=== PATIENT | female | born 1955 | race American Indian/Alaskan Native ===

== ENCOUNTER → 2016-08-13 | Outpatient (CLI) | payer BC, OTHER ==
--- NOTE | 2016-08-13 16:40 | CT ---
EXAMINATION: CT abdomen without contrast HISTORY: Ventral hernia COMPARISON: None TECHNIQUE: Axial CT images obtained through the abdomen without contrast. Coronal and sagittal recon structions obtained. FINDINGS: The lung bases are clear, no pleural effusion. There is mild to moderate fatty infiltration of the liver. The spleen, adrenal glands, and pancreas appear otherwise unremarkable for a noncontrast examination. Cholecystectomy with mild prominence of the common bile duct. No bulky retroperitoneal lymphadenopathy. No abnormal calcifications are noted within the kidneys, no evidence of obstructive uropathy. The visualized large and small bowel are normal in caliber without evidence of obstruction. There is a tiny fat-containing midline ventral hernia noted 8 cm superior to the umbilicus. No suspicious osseous abnormalities. IMPRESSION: 1. Tiny fat-containing supraumbilical midline hernia. 2. Cholecystectomy. 3. Mild to moderate fatty infiltration of the liver.
== END ==
LOC: MW.DI 12:48
PROVIDERS: ATTEND Nurse Practitioner Family
DX: K43.9 Ventral hernia without obstruction or gangrene (principal); K42.9 Umbilical hernia without obstruction or gangrene; Z90.49 Acquired absence of other specified parts of digestive tract; K76.0 Fatty (change of) liver, not elsewhere classified
CPT/HCPCS: 74150; 74150-26

== ENCOUNTER 2016-09-05 10:09 | Day surgery (SDC) | payer BC, OTHER ==
[~2016-09-05 10:09] MED LIST: Lactated Ringers 1,000 ML IV SCH; Lidocaine 2% 5 ML SDV ONE; Midazolam 1 MG/ML 2 ML SDV ONE; Propofol 200 MG/20 ML SDV ONE; Sodium Chloride 0.9% 10 ML Syringe FLUSH PRN; Sodium Chloride 0.9% 2.5 ML Syringe FLUSH PRN; fentaNYL 100 MCG/2 ML SDV ONE
--- NOTE | 2016-09-05 10:58 | PCM.PREANE ---
Preanesthetic Assessment - Anesthesia/Transfusion/Family Hx Anesthesia History: Prior Anesthesia Without Reaction Family History of Anesthesia Reaction: No Transfusion History: No Prior Transfusion(s) Intubation History: Unknown - Review of Systems General: No Symptoms Pulmonary: No Symptoms Cardiovascular: No Symptoms Neurological: No Symptoms Other: Reports: None - Physical Assessment Height: 1.6 m Weight: 77.564 kg ASA Class: 2 Mental Status: Alert & Oriented x3 Airway Class: Mallampati = 2 Dentition: Reports: Bridge (fixed bridge - upper) Thyro-Mental Finger Breadths: 3 Mouth Opening Finger Breadths: 3 ROM/Head Extension: Full Lungs: Clear to auscultation, Normal respiratory effort Cardiovascular: Regular Rate - Allergies Allergies/Adverse Reactions: Allergies Allergy/AdvReac Type Severity Reaction Status Date / Time ibuprofen Allergy Other Verified 09/03/16 09:20 [From Advil Cold and Sinus] pseudoephedrine Allergy Other Verified 09/03/16 09:20 [From Advil Cold and Sinus] - Blood Blood Available: No - Anesthesia Plan Pre-Op Medication Ordered: None - Acknowledgements Anesthesia Type Planned: MAC Pt an Appropriate Candidate for the Planned Anesthesia: Yes Alternatives and Risks of Anesthesia Discussed w Pt/Guardian: Yes Pt/Guardian Understands and Agrees with Anesthesia Plan: Yes PreAnesthesia Questionnaire Other HEENT History: wears glasses, has upper and lower partial dentures Cardiovascular History: Reports: None Respiratory History: Reports: None Gastrointestinal History: Reports: Other (see below) (incisional hernia) Genitourinary History: Reports: None [employer] OPERATOR History: Reports: Musculoskeletal History: Reports: None Neurological History: Reports: None Psychiatric History: Reports: None Endocrine/Metabolic History: Reports: Obesity/BMI 30+ Hematologic History: Reports: None Immunologic History: Reports: None Oncologic (Cancer) History: Reports: None Dermatologic History: Reports: None - Past Surgical History Head Surgeries/Procedures: Reports: None HEENT Surgical History: Reports: None Cardiovascular Surgical History: Reports: None Respiratory Surgical History: Reports: None GI Surgical History: Reports: Appendectomy, Cholecystectomy (open) Female Surgical History: Reports: Breast biopsy, section (x4) Other Female Surgeries/Procedures: x4 Endocrine Surgical History: Reports: None Neurological Surgical History: Reports: None Musculoskeletal Surgical History: Reports: None Oncologic Surgical History: Reports: None Dermatological Surgical History: Reports: None - SUBSTANCE USE Smoking Status *Q: Current Every Day Smoker (05/02 ppd) Tobacco Use Within Last Twelve Months: Cigarettes Recreational Drug Use History: No - HOME MEDS Home Medications: Home Meds . [No Known Home Meds] 09/03/16 [History] - CURRENT (IN HOUSE) MEDS Current Meds: Current Medications Lactated Ringer's (Ringers, Lactated) 1,000 mls @ 125 mls/hr IV ASDIRECTED CARLIN Sodium Chloride (Saline Flush) 10 ml FLUSH ASDIRECTED PRN PRN Reason: Keep Vein Open Sodium Chloride (Saline Flush) 2.5 ml FLUSH ASDIRECTED PRN PRN Reason: Keep Vein Open Discontinued Medications Fentanyl (Sublimaze) Confirm Administered Dose 100 mcg .ROUTE .STK-MED ONE Stop: 09/05/16 07:19 Lidocaine (Xylocaine-Mpf 2%) Confirm Administered Dose 5 ml .ROUTE .STK-MED ONE Stop: 09/05/16 07:19 Midazolam HCl (Versed 1 Mg/Ml) Confirm Administered Dose 2 mg .ROUTE .STK-MED ONE Stop: 09/05/16 07:19 Propofol (Diprivan 20 Ml) Confirm Administered Dose 400 mg .ROUTE .STK-MED ONE Stop: 09/05/16 07:19
[2016-09-05] MEDS ORDERED: Glycopyrrolate 0.2 MG/ML SDV ONE (11:11)
[2016-09-05] MEDS ORDERED: Propofol 200 MG/20 ML SDV ONE ×2 (11:29→11:44)
--- NOTE | 2016-09-05 12:02 | PCM.OPNOTE ---
- General Post-Op/Procedure Note Date of Surgery/Procedure: 09/05/16 Operative Procedure(s): Screening colonoscopy Findings: 3 sigmoid colon polyps Pre Op Diagnosis: Screening colonoscopy Post-Op Diagnosis: 3 sigmoid polyps Anesthesia Technique: MAC Primary Surgeon: Flor Bonilla Condition: Good
[2016-09-05] MEDS ORDERED: Midazolam 1 MG/ML 2 ML SDV ONE (12:05)
--- NOTE | 2016-09-05 12:21 | PCM.POSTAN ---
POST ANESTHESIA ASSESSMENT - MENTAL STATUS Mental Status: alert, oriented - RESPIRATORY Respiratory Status: respiratory rate WNL, airway patent, O2 saturation stable - CARDIOVASCULAR CV Status: pulse rate WNL, blood pressure stable - GASTROINTESTINAL GI Status: no symptoms - POST OP HYDRATION Hydration Status: adequate & stable - OBSERVATIONS Free Text/Narrative:: no anesthesia problems
[2016-09-05 14:31] VITALS: BP 159/91
--- NOTE | 2016-09-05 20:47 | OR ---
SURGEON: REN BAUMANN MD DATE OF PROCEDURE: 09/05/2016 PREOPERATIVE DIAGNOSIS: Screening colonoscopy. POSTOPERATIVE DIAGNOSIS: Sigmoid colon polyps. PROCEDURE PERFORMED: Colonoscopy. INSTRUMENT USED: Olympus colonoscope. ANESTHESIA: MAC. EXTENT OF EXAM: To the cecum. PREPARATION: Good. LIMITATIONS: None. INDICATIONS: The patient is a 61-year-old female, who presents for repair of an incisional hernia. On further questioning, the patient has never had a screening colonoscopy performed. The decision was made to proceed with a screening colonoscopy first before moving forward with the incisional hernia repair. The patient and I discussed the procedure as well as expected perioperative course. We discussed the risks, including bleeding, infection, or damage to surrounding structures, including perforation. The patient verbalized understanding and wished to proceed. PROCEDURE IN DETAIL: The patient was brought into the endoscopy suite and placed in the left lateral decubitus position. A time-out was completed verifying the patient's name, age, date of , allergies, and procedure to be performed. Monitored anesthesia care was induced and continuous oxygen was provided via nasal cannula throughout the procedure. After adequate sedation was achieved, a digital rectal exam was performed. The examination was within normal limits. A well lubricated colonoscope was then inserted into the rectum and advanced under direct visualization to the level of the cecum. The cecum was identified by both visual and anatomic landmarks. A photograph was taken of the cecal cap as well as with the scope retroflexed within the cecum. The scope was then straightened out and fully withdrawn while examining the color, texture, anatomy, and integrity of mucosa from the cecum to the anal canal. In the distal sigmoid colon, 3 small 1 to 2 mm sessile polyps were noted. These were all removed via cold biopsy forceps and sent to pathology labeled as sigmoid colon polyp #1, #2, #3. The scope was then brought into the rectum and retroflexed to allow visualization of the anal canal opening. This appeared normal and a photograph was taken. The scope was then straightened out and removed from the patient. The cecum to anus time was 22 minutes. The patient was transferred to the recovery room in stable condition. ENDOSCOPIC DIAGNOSIS: Sigmoid colon polyps x3. RECOMMENDATION: Follow up in clinic in 2 weeks. JASPAL / SHERWIN /[id number]
== END 2016-09-05 12:58 | disposition home or self-care (01) ==
LOC: MW.SDS 10:09
PROVIDERS: ATTEND Surgery
DX: Z12.11 Encounter for screening for malignant neoplasm of colon (principal); D12.5 Benign neoplasm of sigmoid colon; F17.200 Nicotine dependence, unspecified, uncomplicated; Z90.49 Acquired absence of other specified parts of digestive tract; Z98.890 Other specified postprocedural states; Z83.79 Family history of other diseases of the digestive system
CPT/HCPCS: 45380; J2250; J3010; J7120; 88305; J2704

== ENCOUNTER 2016-09-19 07:11 | Day surgery (SDC) | payer BC, OTHER ==
[~2016-09-19 07:11] MED LIST changes: -Lidocaine 2% 5 ML SDV ONE; -Midazolam 1 MG/ML 2 ML SDV ONE; -Propofol 200 MG/20 ML SDV ONE; +ceFAZolin 2 GM in Premix Bag 1 BAG IV ONE; -fentaNYL 100 MCG/2 ML SDV ONE
[2016-09-19] MEDS ORDERED: fentaNYL 250 MCG/5 ML SDV ONE (07:32)
[2016-09-19] MEDS ORDERED: Rocuronium 10 MG/ML 10 ML Syringe ONE (07:32)
[2016-09-19] MEDS ORDERED: Midazolam 1 MG/ML 2 ML SDV ONE (07:32)
[2016-09-19] MEDS ORDERED: Ondansetron 4 MG/2 ML SDV ONE (07:32)
[2016-09-19] MEDS ORDERED: Lidocaine 2% 5 ML SDV ONE (07:32)
[2016-09-19] MEDS ORDERED: Propofol 200 MG/20 ML SDV ONE (07:32)
--- NOTE | 2016-09-19 07:43 | PCM.PREANE ---
Preanesthetic Assessment - Anesthesia/Transfusion/Family Hx Anesthesia History: Prior Anesthesia Without Reaction Family History of Anesthesia Reaction: No Transfusion History: No Prior Transfusion(s) Intubation History: Unknown - Review of Systems General: No Symptoms Pulmonary: No Symptoms Cardiovascular: No Symptoms Gastrointestinal: No symptoms Neurological: No Symptoms Other: Reports: None - Physical Assessment O2 Sat by Pulse Oximetry: 96 Respiratory Rate: 16 Vital Signs: Last Vital Signs Temp 36.8 C 09/19/16 07:33 Pulse 67 09/19/16 07:33 Resp 16 09/19/16 07:33 BP 120/59 L 09/19/16 07:33 Pulse Ox 96 09/19/16 07:33 Height: 1.6 m Weight: 77.564 kg ASA Class: 2 Mental Status: Alert & Oriented x3 Airway Class: Mallampati = 2 Dentition: Reports: Normal Dentition Thyro-Mental Finger Breadths: 3 Mouth Opening Finger Breadths: 3 ROM/Head Extension: Full Lungs: Clear to auscultation, Normal respiratory effort Cardiovascular: Regular Rate, Regular Rhythm - Allergies Allergies/Adverse Reactions: Allergies Allergy/AdvReac Type Severity Reaction Status Date / Time ibuprofen Allergy Other Verified 09/03/16 09:20 [From Advil Cold and Sinus] pseudoephedrine Allergy Other Verified 09/03/16 09:20 [From Advil Cold and Sinus] - Blood Blood Available: No - Anesthesia Plan Pre-Op Medication Ordered: None - Acknowledgements Anesthesia Type Planned: General Anesthesia Pt an Appropriate Candidate for the Planned Anesthesia: Yes Alternatives and Risks of Anesthesia Discussed w Pt/Guardian: Yes Pt/Guardian Understands and Agrees with Anesthesia Plan: Yes PreAnesthesia Questionnaire HEENT History: Reports: None Other HEENT History: wears glasses, has upper and lower partial dentures Cardiovascular History: Reports: None Respiratory History: Reports: None Gastrointestinal History: Reports: Other (See Below) Genitourinary History: Reports: None 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: Musculoskeletal History: Reports: None Neurological History: Reports: None Psychiatric History: Reports: None Endocrine/Metabolic History: Reports: Obesity/BMI 30+ Hematologic History: Reports: None Immunologic History: Reports: None Oncologic (Cancer) History: Reports: None Dermatologic History: Reports: None - Past Surgical History GI Surgical History: Reports: Appendectomy, Cholecystectomy Female Surgical History: Reports: Breast Biopsy, Section (x4) - SUBSTANCE USE Smoking Status *Q: Current Every Day Smoker (1/2 ppd) Tobacco Use Within Last Twelve Months: Cigarettes Recreational Drug Use History: No - HOME MEDS Home Medications: Home Meds . [No Known Home Meds] 09/03/16 [History] - CURRENT (IN HOUSE) MEDS Current Meds: Current Medications Lactated Ringer's (Ringers, Lactated) 1,000 mls @ 125 mls/hr IV ASDIRECTED CARLIN Last Admin: 09/19/16 07:35 Dose: 125 mls/hr Sodium Chloride (Saline Flush) 10 ml FLUSH ASDIRECTED PRN PRN Reason: Keep Vein Open Sodium Chloride (Saline Flush) 2.5 ml FLUSH ASDIRECTED PRN PRN Reason: Keep Vein Open Discontinued Medications Fentanyl (Sublimaze) Confirm Administered Dose 250 mcg .ROUTE .STK-MED ONE Stop: 09/19/16 07:33 Cefazolin Sodium/Dextrose 2 gm (/ Premix) 50 mls @ 100 mls/hr IV ONETIME ONE Stop: 09/18/16 12:43 Lidocaine (Xylocaine-Mpf 2%) Confirm Administered Dose 5 ml .ROUTE .STK-MED ONE Stop: 09/19/16 07:33 Midazolam HCl (Versed 1 Mg/Ml) Confirm Administered Dose 2 mg .ROUTE .STK-MED ONE Stop: 09/19/16 07:33 Ondansetron HCl (Zofran) Confirm Administered Dose 4 mg .ROUTE .STK-MED ONE Stop: 09/19/16 07:33 Propofol (Diprivan 20 Ml) Confirm Administered Dose 200 mg .ROUTE .STK-MED ONE Stop: 09/19/16 07:33 Rocuronium Crosby (Zemuron) Confirm Administered Dose 100 mg .ROUTE .STK-MED ONE Stop: 09/19/16 07:33
[2016-09-19] MEDS ORDERED: Bupivacaine 0.5% 10 ML SDV ONE (08:42)
[2016-09-19] MEDS ORDERED: ceFAZolin 1 GM Vial ONE (08:43)
[2016-09-19] MEDS ORDERED: Neostigmine Methylsulfate 1 MG/ML 5 ML Syringe ONE (09:36)
[2016-09-19] MEDS ORDERED: Ketorolac 30 MG/ML SDV ONE (09:36)
[2016-09-19] MEDS ORDERED: fentaNYL 100 MCG/2 ML SDV IVPUSH PRN (09:39)
--- NOTE | 2016-09-19 10:18 | PCM.OPNOTE ---
- General Post-Op/Procedure Note Date of Surgery/Procedure: 09/19/16 Operative Procedure(s): Incisional hernia repair Findings: 1.5 cm ventral defect 8 cm above the umbilicus. Incarcerated omentum. Pre Op Diagnosis: Incisional hernia repair Post-Op Diagnosis: same Anesthesia Technique: General ET tube Primary Surgeon: Flor Bonilla Pathology: Hernia sac Fluid Replacement, Intraop: 1,100 EBL in mLs: 5 Condition: Good
--- NOTE | 2016-09-19 10:49 | PCM.POSTAN ---
POST ANESTHESIA ASSESSMENT - MENTAL STATUS Mental Status: alert, oriented - RESPIRATORY Respiratory Status: respiratory rate WNL, airway patent, O2 saturation stable - CARDIOVASCULAR CV Status: pulse rate WNL, blood pressure stable - GASTROINTESTINAL GI Status: no symptoms - PAIN Pain Score: 5 - POST OP HYDRATION Hydration Status: adequate & stable - OBSERVATIONS Free Text/Narrative:: no anesthesia problems
[2016-09-19] MEDS ORDERED: Acetaminophen/oxyCODONE 325-10 MG Tab PO PRN (11:20)
[2016-09-19 12:23] VITALS: BP 131/64
--- NOTE | 2016-09-19 13:46 | OR ---
SURGEON: REN BAUMANN MD DATE OF PROCEDURE: 09/19/2016 PREOPERATIVE DIAGNOSIS: Incisional hernia. POSTOPERATIVE DIAGNOSIS: Incisional hernia. PROCEDURE PERFORMED: Incisional hernia repair. ANESTHESIA: General endotracheal anesthesia. FLUIDS: 1100 mL crystalloid. ESTIMATED BLOOD LOSS: 5 mL. FINDINGS: A 6 cm incarcerated piece of omentum associated with a 1.5 cm fascial defect, 8 cm from the umbilicus. COMPLICATIONS: None. INDICATIONS: The patient is a 61-year-old female who has had multiple abdominal surgeries and presents with an incisional hernia along the superior aspect of this defect. A CT of the abdomen was performed that showed a small defect associated with incarcerated piece of omentum. The patient and I discussed the treatment for this which is operative repair. We discussed the procedure as well as expected perioperative course. We discussed the risks, including bleeding, infection, or damage to surrounding structures. The patient verbalized understanding and wishes to proceed. PROCEDURE IN DETAIL: The patient was brought to the operating room and placed on the OR table in supine position. A time-out was completed verifying the patient's name, age, date of , allergies, and procedure to be performed. General endotracheal anesthesia was induced. The abdomen was prepped and draped in the usual standard fashion. A measuring tape was placed on the patient's abdomen and I measured 8 cm superior to the umbilicus. I palpated this area and could feel a bulge along her previous incision line. I anesthetized the area over this spot with 0.5% Marcaine plain. I then used a 15 blade to make a 5 cm incision over the top of this. Cautery was used to dissect down into the subcutaneous tissues to the level of the fascia. A large hernia sac that deviated to the left of midline was noted. This was gently dissected free from the surrounding subcutaneous tissues. I then cleared away the base of this hernia sac where it came through the fascia. The fascial defect itself was measured approximately 1 to 2 cm in size. However, the hernia sac was approximately 6 cm in size. I transected the hernia sac at its base using cautery, being careful to note for any additional structures in the hernia sac. Only fat was noted to be contained within the hernia sac. This was passed off the field and sent to Pathology, labeled as hernia sac. The fascial defect was then measured and found to be 1.5 cm in size. Given the small size, the decision was made to repair this primarily, and 0 Ethibond sutures were placed in interrupted fashion along the fascial defect horizontally. These were then tied down in the fascial defect closed, and 0.5% Marcaine plain was injected into the fascia afterwards. The wound was then closed with interrupted 3-0 Vicryl in the subcutaneous fat and the skin was closed with a running 4-0 Monocryl subcuticular stitch. Steri- Strips and sterile dressings were applied. Counts were complete and correct at the end of the case. The patient was transferred to the recovery room in stable condition. JASPAL COURTNEY /[id number]
== END 2016-09-19 12:20 | disposition home or self-care (01) ==
LOC: MW.SDS 07:11
PROVIDERS: ATTEND Surgery
DX: K43.0 Incisional hernia with obstruction, without gangrene (principal); F17.210 Nicotine dependence, cigarettes, uncomplicated; Z98.890 Other specified postprocedural states; Z90.49 Acquired absence of other specified parts of digestive tract; Z83.79 Family history of other diseases of the digestive system; Z88.8 Allergy status to other drugs, medicaments and biological substances
CPT/HCPCS: 49561; A9270; J0690; J1885; J2250; J2405; J3010; J7120; 00832; 88302; J2704

== ENCOUNTER 2021-06-04 12:26 | Emergency (ER) | payer BC, OTHER ==
[2021-06-04 12:35] VITALS: BP 172/86; PULSE 85
== END 2021-06-04 13:09 | disposition home or self-care (01) ==
LOC: MW.ED 12:26
DX: H66.93 Otitis media, unspecified, bilateral (principal); E66.9 Obesity, unspecified; Z68.33 Body mass index [BMI] 33.0-33.9, adult; Z88.6 Allergy status to analgesic agent; Z88.8 Allergy status to other drugs, medicaments and biological substances
CPT/HCPCS: 99282